=== PATIENT | female | born 1975 | race Caucasian/White ===

== ENCOUNTER 2018-07-12 09:47 | Outpatient (REF) | payer OTHER, SELFPAY ==
[2018-07-12 12:51] LABS: ALT 18 U/L (12-78); AST 13 U/L (15-37); Albumin 3.7 g/dL (3.4-5.0); Alkaline Phosphatase 77 U/L (46-116); Anion Gap 9.7 mmol/L (3-11); BUN 14 mg/dL (7-18); Bilirubin, Total 0.4 mg/dL (0.2-1.0); CO2 25.3 mmol/L (21.0-32.0); CREATININE 0.68 mg/dL (0.55-1.02); Chloride 103 mmol/L (98-107); Glucose 92 mg/dL (70-100); Potassium 3.7 mmol/L (3.5-5.1); Sodium 138 mmol/L (136-145); Total Protein 7.4 g/dL (6.4-8.2)
[2018-07-12 13:07] LABS: Cholesterol 230 mg/dL (50-200); HDL Cholesterol 50 mg/dL (40-60); LDL CHOLESTEROL 158 mg/dL (<100); Triglyceride 118 mg/dL (30-150)
== END 2018-07-12 10:07 ==
LOC: NCHCN 09:47
PROVIDERS: PCP Internal Medicine; Visit Provider Nurse Practitioner
DX: Z00.00 Encounter for general adult medical examination without abnormal findings (principal); Z13.220 Encounter for screening for lipoid disorders; Z13.228 Encounter for screening for other metabolic disorders
CPT/HCPCS: 80053; 80061; 83721

== ENCOUNTER 2018-12-16 00:34 | Outpatient (CLI) | payer OTHER, SELFPAY ==
--- NOTE | 2018-12-16 07:42 | DI.MAMMO_ITS ---
SYMPTOM/DIAGNOSIS: SCREENING, Z12.31 MAMMOGRAMS: Mammograms were interpreted according to the usual protocol including computer analysis with CAD system, tomosynthesis and C view imaging. The breasts are heterogeneously dense. No dominant mass or clumped microcalcification is identified in either breast. The current examination is compared with previous examinations including 10/2017 and there has been no gross interval change in appearance in comparison with the previous studies. CONCLUSION: No specific evidence of malignancy at this time. Routine screening examinations are suggested at yearly intervals in this age group according to the ACS/ACR guidelines. Category 1. Breast density, category C. MQSA ASSESSMENT OF FINDINGS: Negative. Category 1. Patient will receive a letter notifying them of these results. Bi-RADS category C. The breasts are heterogeneously dense, which may obscure small masses.
== END 2018-12-16 00:54 ==
PROVIDERS: PCP Internal Medicine; Visit Provider Nurse Practitioner Women's Health
DX: Z12.31 Encounter for screening mammogram for malignant neoplasm of breast (principal)
CPT/HCPCS: 77063; 77067

== ENCOUNTER 2019-06-09 09:03 | Outpatient (REF) | payer OTHER, SELFPAY ==
[2019-06-09 14:37] LABS: Anion Gap 9.3 mmol/L (3-11); BUN 7 mg/dL (7-18); CO2 26.7 mmol/L (21.0-32.0); CREATININE 0.63 mg/dL (0.55-1.02); Calcium 8.7 mg/dL (8.5-10.1); Chloride 107 mmol/L (98-107); Glucose 83 mg/dL (70-100); Potassium 3.9 mmol/L (3.5-5.1); Sodium 143 mmol/L (136-145)
== END 2019-06-09 09:23 ==
LOC: NCHCN 09:03
PROVIDERS: PCP Internal Medicine; Visit Provider Internal Medicine
DX: Z00.00 Encounter for general adult medical examination without abnormal findings (principal); I10 Essential (primary) hypertension; E66.9 Obesity, unspecified
CPT/HCPCS: 80048

== ENCOUNTER 2019-08-17 18:35 | Emergency (ER) | payer OTHER, SELFPAY ==
[2019-08-17 18:41] VITALS: BP 167/86; PULSE 98; RESP 20; TEMP 37.1; O2SAT 98
[2019-08-17 19:26] LABS: Bilirubin Negative (Negative); Blood Small (Negative); Clarity Sl Cloudy (Clear); Glucose Negative (Negative); Ketones Negative (Negative); Leukocyte Esterase Small (Negative); Nitrite Negative (Negative); Specific Gravity >= 1.030 (1.005-1.025); Urobilinogen 0.2 EU/dL (Up TO 0.2); pH 5.5 (5-8)
[2019-08-17 19:43] LABS: Bacteria Negative HPF (Negative); C & S Indicated? Yes; Casts Negative LPF (Negative); Crystals Negative HPF (Negative); Epithelial Cells Few HPF (Negative); Mucus Negative (Negative); Other Cells Few Renal (Negative); RBC Negative HPF (0-2); WBC >50 HPF (0-5)
--- NOTE | 2019-08-17 19:48 | W.ED.GENAD ---
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 Call tomorrow to schedule timely follow-up. Please contact your primary care physician to arrange follow-up. Return to the ER for any worsening or new concerning symptoms. Referrals: Sigifredo Samayoa MD [Primary Care Provider] - Medical Decision Making 44-year-old female with no prior history of urinary tract infection, here with sense of incomplete emptying, increased urinary frequency, and dysuria over the past few days and loss of bladder control with incontinence today. Urinalysis was reviewed and consistent with UTI. Plan to treat with Keflex. 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 She was also encouraged to return to the ER immediately should she have any worsening or new concerning symptoms or inability to follow-up as discussed. HPI General Mode of arrival: ambulatory. Date/Time Provider Initiated Documentation: 08/17/19 18:52. Limitations to Documentation: no limitations. Information obtained by: patient. HPI Narrative: 44-year-old female here with chief complaint of abnormal urinary symptoms. Patient notes that for the past 2 to 3 days she has had increased urinary frequency, sense of incomplete emptying, mild discomfort post urination, and today while she was at work and attempting to hold in her urination had loss of bladder control. Symptoms are moderate. She denies associated nausea or fever. She has chronic unchanged low back pain times years. No associated flank pain. No abdominal pain. Patient denies abnormal vaginal discharge. She is on oral control. She is sexually active with one partner. No history of STDs. No abnormal vaginal bleeding but does note that she has had some intermittent pelvic discomfort described as cramping over the past 1 month that resolved last week. 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: 3 Review of Systems All systems reviewed & are unremarkable except as noted in HPI and below Constitutional Constitutional: Denies fever(s) Gastrointestinal Gastrointestinal: Denies abdominal pain Genitourinary Genitourinary: Reports as per HPI and Denies hematuria [facility] Medical History Depression (Chronic) Hypertension (Chronic) Social History Smoking/Tobacco Use Status: Never Alcohol Intake: never Substance use type: does not use Do you feel safe at home: Yes Do you feel safe in your relationship?: Yes Exam Const General: cooperative and no acute distress HENMT Mouth: moist mucous membranes Eyes Conjunctivae: normal conjunctivae Sclera: normal sclerae Resp Auscultation: clear to auscultation bilaterally, no rales, no rhonchi and no wheezes Cardio Jugular venous pressure: no JVD Rate: regular rate and not tachycardic Rhythm: regular rhythm GI Palpation: soft, not firm, no guarding, no masses, not rigid and nontender Skin General skin exam: no rashes or lesions noted Neuro General: alert, awake and tone normal Extrem General: no edema Psych Appearance: grossly normal Mental Status: mental status grossly normal Course Vital Signs Vital signs: Vital Signs Temperature 37.1 C 08/17/19 18:41 Pulse 98 H 08/17/19 18:41 Respiratory Rate 08/17/19 18:41 Blood Pressure 167/86 H 08/17/19 18:41 Pulse Oximetry 98 08/17/19 18:41 Temperature 37.1 C 08/17/19 18:41 Temperature Source Temporal Artery Scan 08/17/19 18:41 Pulse 98 H 08/17/19 18:41 Respiratory Rate 08/17/19 18:41 Respiratory Effort Non-Labored 08/17/19 18:48 Blood Pressure 167/86 H 08/17/19 18:41 Blood Pressure Position Sitting 08/17/19 18:41 Pulse Oximetry 98 08/17/19 18:41 Oxygen Delivery Method Room Air 08/17/19 18:41 Oxygen Flow Rate 0 08/17/19 18:41 Pain Level 2 08/17/19 18:48 Lab/Test Results Lab/Test Results: 08/17/19 19:20 Urine - Reflex from Ua Urine Culture - Pending Laboratory Tests Range/Units 08/17/19 19:20 Urine Color (Yellow) Yellow Urine Clarity (Clear) Sl cloudy Urine pH (5-8) 5.5 Ur Specific [place] (1.005-1.025) >= 1.030 H Urine Protein (Negative) mg/dL 100 H Urine Ketones (Negative) mg/dL Negative Urine Blood (Negative) Small H Urine Nitrite (Negative) Negative Urine Bilirubin (Negative) Negative Urine Urobilinogen (Up TO 0.2) EU/dL 0.2 Ur Leukocyte Esterase (Negative) Small H Urine RBC (0-2) HPF Negative Urine WBC (0-5) HPF >50 H Ur Epithelial Cells (Negative) HPF Few Urine Crystals (Negative) HPF Negative Urine Bacteria (Negative) HPF Negative Urine Casts (Negative) LPF Negative Urine Mucus (Negative) Negative Urine Other (Negative) Few renal Ur Culture Indicated? Yes Urine Glucose (Negative) mg/dL Negative POC- Test(urine) Negative
[2019-08-17] MEDS: Cephalexin 500 MG CAP PO (19:56)
[2019-08-17 19:57] VITALS: BP 157/73; PULSE 91; RESP 18; TEMP 37.5; O2SAT 98
== END 2019-08-17 22:05 | disposition home or self-care (01) ==
PROVIDERS: Emergency Provider Student in an Organized Health Care Education/Training Program; PCP Internal Medicine
DX: N39.0 Urinary tract infection, site not specified (principal); B96.89 Other specified bacterial agents as the cause of diseases classified elsewhere; I10 Essential (primary) hypertension
CPT/HCPCS: 81025; 99283; 81003; 81015; 87086

== ENCOUNTER 2019-11-10 10:10 | Outpatient (REF) | payer OTHER, SELFPAY ==
--- NOTE | 2019-11-10 09:30 | SKI_PTH ---
PATIENT: Paulette Purvis LOC: [facility] U#:[id number] AGE/SX: 44/F ROOM: RE11/10/[address]: MARIANN Trejo : 1975 BED: DIS: 11/10/2019 SPEC #: [id number] RECD: 11/10/19 12:27 STATUS: CARMEN REUmesh #: [id number] GANESH: 11/10/19 09:[address]: Celia Quiroga DEPT: Surgical Specimen RECD BY: Mavis Dillard ENTERED: 11/10/19 12:28 SP TYPE: SKI OTHR DR: Sigifredo Samayoa Tissues: 1 - SKIN BIOPSY(SHAVE/PUNCH) Procedures: SKIN LEVEL 4 Comments: [id number]
== END 2019-11-10 10:30 ==
LOC: LBN 10:10
PROVIDERS: PCP Internal Medicine; Visit Provider Physical Therapy Assistant
DX: D23.62 Other benign neoplasm of skin of left upper limb, including shoulder (principal)
CPT/HCPCS: 88305

== ENCOUNTER 2021-07-15 09:21 | Outpatient (REF) | payer OTHER, SELFPAY ==
[2021-07-15 16:53] LABS: HCT 43.7 % (36.0-46.0); HGB 14.5 g/dL (11.2-15.7); MCHC 33.2 % (32.0-36.0); MCV 93.4 fL (80-95); MPV 10.7 fL (8.0-11.0); Platelet Count 365 10^3/uL (130-400); RBC 4.68 10^6/uL (3.93-5.22); RDW 11.9 % (11.7-14.6); RDW-SD 41.1 fL; WBC 6.82 10^3/uL (4.4-10.8)
[2021-07-15 17:39] LABS: ALT 19 U/L (14-59); AST 13 U/L (15-37); Alkaline Phosphatase 100 U/L (46-116); Anion Gap 11.7 mmol/L (3-11); BUN 18 mg/dL (7-18); Bilirubin, Total 0.4 mg/dL (0.2-1.0); CO2 26.3 mmol/L (21.0-32.0); CREATININE 0.7 mg/dL (0.55-1.02); Calcium 9.2 mg/dL (8.5-10.1); Calculated LDL 201 mg/dL (<100); Chloride 99 mmol/L (98-107); Cholesterol 301 mg/dL (<200); Glucose 97 mg/dL (74-106); HDL Cholesterol 56 mg/dL (40-60); Potassium 3.8 mmol/L (3.5-5.1); Sodium 137 mmol/L (136-145); TSH (W/Ref FT4) 1.62 uIU/mL (0.36-3.74); Total Protein 7.9 g/dL (6.4-8.2); Triglyceride 224 mg/dL (<150)
[2021-07-16 11:13] LABS: Hepatitis C Ab w Rflx HCV PCR Negative (Negative)
== END 2021-07-15 09:22 | disposition home or self-care (01) ==
LOC: NCHCN 09:21
PROVIDERS: PCP Internal Medicine; Visit Provider Family Medicine
DX: I10 Essential (primary) hypertension (principal); E66.9 Obesity, unspecified; Z00.00 Encounter for general adult medical examination without abnormal findings; Z11.59 Encounter for screening for other viral diseases
CPT/HCPCS: 80053; 80061; 85027; 86803; 84443

== ENCOUNTER 2021-09-02 15:04 | Outpatient (REF) | payer OTHER, SELFPAY ==
[2021-09-02 20:41] LABS: ALT 18 U/L (14-59); AST 12 U/L (15-37); Albumin 3.9 g/dL (3.4-5.0); Alkaline Phosphatase 96 U/L (46-116); Bilirubin, Direct 0.1 mg/dL (0.0-0.2); Bilirubin, Total 0.3 mg/dL (0.2-1.0); Total Protein 7.6 g/dL (6.4-8.2)
== END 2021-09-02 15:05 | disposition home or self-care (01) ==
LOC: NCHCN 15:04
PROVIDERS: PCP Internal Medicine; Visit Provider Family Medicine
DX: I10 Essential (primary) hypertension (principal)
CPT/HCPCS: 80076

== ENCOUNTER 2021-11-12 01:46 | Outpatient (CLI) | payer OTHER, SELFPAY ==
--- NOTE | 2021-11-12 | DI.MAMMO_ITS ---
Exam(s) MAMMO SCREENING EXAM: MAMMO SCREENING CLINICAL HISTORY: SCREENING FOR BREAST CANCER Z12.39 TECHNIQUE: Bilateral full field digital CC and MLO mammographic images were obtained with 3D tomosyn thesis and utilizing computer aided detection (CAD). COMPARISON: Available for comparison. FINDINGS: Masses/Architectural Distortion: None seen. Microcalcifications: No suspicious pleomorphic-type are seen. Skin Thickening/Nipple Retraction: None. IMPRESSION: 1. No significant interval change with no specific features of malignancy noted. 2. Unless there is more urgent need, screening mammography is recommended, as per [employer] guidelines. BI-RADS Category 1 - Negative Breast Density - Category C - Heterogeneously dense Breast density category C or D implies that the patient has dense breast tissue. Dense breast tissue is very common and is not abnormal but dense breast tissue can make it harder to find cancer on a ma mmogram. Also, dense breast tissue may increase their breast cancer risk. This information about the result of the mammogram report was provided to the patient to raise their awareness. Use this report when you speak with the patient about their risks for breast cancer, which includes their family hist ory. At that time, you may recommend for more screening tests (Ultrasound or MRI) as they might be us eful based on their risk. A negative radiographic report should not delay biopsy if a dominant or clinically suspicious mass is present. Up to ten percent of cancers are not identified on mammography. A negative report may reinforce clinical impression. Adenosis and dense breasts may obscure an underlying neoplasm. False positive reports average 6 to 10%. Patient will receive a letter notifying them of these results.
== END 2021-11-12 02:06 ==
PROVIDERS: PCP Internal Medicine; Visit Provider Family Medicine
DX: Z12.31 Encounter for screening mammogram for malignant neoplasm of breast (principal)
CPT/HCPCS: 77063; 77067

== ENCOUNTER 2022-09-11 10:30 | Outpatient (REF) | payer OTHER, SELFPAY ==
[2022-09-11 14:59] LABS: BUN 10 mg/dL (7-18); CREATININE 0.7 mg/dL (0.55-1.02); Calcium 9.6 mg/dL (8.5-10.1); Chloride 101 mmol/L (98-107); Estimated GFR 105.95 (mL/min/1.73m2); Glucose 97 mg/dL (74-106); Potassium 4.3 mmol/L (3.5-5.1); Sodium 136 mmol/L (136-145)
[2022-09-11 15:41] LABS: Calculated LDL 103 mg/dL (<100); Cholesterol 181 mg/dL (<200); HDL Cholesterol 71 mg/dL (40-60); Triglyceride 38 mg/dL (<150)
== END 2022-09-11 10:31 | disposition home or self-care (01) ==
LOC: NCHCN 10:30
PROVIDERS: PCP Internal Medicine; Visit Provider Family Medicine
DX: E66.8 Other obesity (principal); I10 Essential (primary) hypertension
CPT/HCPCS: 80048; 80061

== ENCOUNTER 2022-11-20 02:24 | Outpatient (CLI) | payer OTHER, SELFPAY ==
--- NOTE | 2022-11-20 | DI.MAMMO_ITS ---
Exam(s) MAMMO SCREENING EXAM: MAMMO SCREENING CLINICAL HISTORY: SCREENING, Z12.31. TECHNIQUE: Bilateral full field digital CC and MLO mammographic images were obtained with 3D tomosyn thesis and utilizing computer aided detection (CAD). COMPARISON: Prior mammograms were reviewed. FINDINGS: There has been no significant change in the appearance and distribution of the fibroglandular tissue. There are no new spiculated masses nor malignant appearing microcalcification groups. There is no significant architectural distortion nor skin thickening-retraction. IMPRESSION: No radiographic evidence of malignancy. BI-RADS Category 1 - Negative Breast Density - Category C - Heterogeneously dense Breast density Category C or D implies that the patient has dense breast tissue. Dense breast tissue can make it harder to find cancer on a mammogram. Dense breast tissue is also associated with an incr eased risk of breast cancer. This information about the result of the mammogram report was provided to the patient to raise their awareness. Use this report when you speak with the patient about their risks for breast cancer, which includes their family history. At that time, you may recommend additional screening tests (Ultrasoun d or MRI) as these tests may add significant information. A negative radiographic report should not delay biopsy if a dominant or clinically suspicious mass is present. Up to ten percent of cancers are not identified on mammography. A negative report may reinforce clinical impression. Adenosis and dense breasts may obscure an underlying neoplasm. False positive reports average 6 to 10%. Patient will receive a letter notifying them of these results.
== END 2022-11-20 02:44 ==
LOC: DI 02:25
PROVIDERS: PCP Internal Medicine; Visit Provider Family Medicine
DX: Z12.31 Encounter for screening mammogram for malignant neoplasm of breast (principal)
CPT/HCPCS: 77063; 77067

== ENCOUNTER 2024-09-22 01:51 | Outpatient (CLI) | payer OTHER, SELFPAY ==
[2024-09-22 08:48] LABS: ALT 15 U/L (14-59); AST 12 U/L (15-37); Albumin 3.8 g/dL (3.4-5.0); Alkaline Phosphatase 110 U/L (46-116); Anion Gap 7.4 mmol/L (3-11); BUN 14 mg/dL (7-18); CO2 29.6 mmol/L (21.0-32.0); CREATININE 0.9 mg/dL (0.55-1.02); Calcium 9.5 mg/dL (8.5-10.1); Calculated LDL 85 mg/dL (<100); Chloride 101 mmol/L (98-107); Cholesterol 176 mg/dL (<200); Glucose 109 mg/dL (74-106); HDL Cholesterol 73 mg/dL (40-60); Potassium 4.3 mmol/L (3.5-5.1); Sodium 138 mmol/L (136-145); Total Protein 7.8 g/dL (6.4-8.2); Triglyceride 92 mg/dL (<150)
== END 2024-09-22 01:52 | disposition home or self-care (01) ==
PROVIDERS: PCP Internal Medicine; Visit Provider Family Medicine
DX: Z00.00 Encounter for general adult medical examination without abnormal findings (principal)
CPT/HCPCS: 36415; 80053; 80061

== ENCOUNTER 2024-11-18 00:26 | Outpatient (CLI) | payer OTHER, SELFPAY ==
--- NOTE | 2024-11-18 | DI.MAMMO_ITS ---
Exam(s) MAMMO SCREENING EXAM: MAMMO SCREENING CLINICAL HISTORY: Screening, Z12.31. TECHNIQUE: Bilateral full field digital CC and MLO mammographic images were obtained with 3D tomosyn thesis and utilizing computer aided detection (CAD). COMPARISON: Prior mammograms were reviewed. FINDINGS: There has been no significant change in the appearance and distribution of the fibroglandular tissue. There are no CAD designations. There are no new spiculated masses nor malignant appearing microcalcification groups. There is no significant architectural distortion nor skin thickening-retraction. IMPRESSION: No radiographic evidence of malignancy. BI-RADS Category 1 - Negative Breast Density - Category C - Heterogeneously dense Breast density Category C or D implies that the patient has dense breast tissue. Dense breast tissue can make it harder to find cancer on a mammogram. Dense breast tissue is also associated with an incr eased risk of breast cancer. This information about the result of the mammogram report was provided to the patient to raise their awareness. Use this report when you speak with the patient about their risks for breast cancer, which includes their family history. At that time, you may recommend additional screening tests (Ultrasoun d or MRI) as these tests may add significant information. A negative radiographic report should not delay biopsy if a dominant or clinically suspicious mass is present. Up to ten percent of cancers are not identified on mammography. A negative report may reinforce clinical impression. Adenosis and dense breasts may obscure an underlying neoplasm. False positive reports average 6 to 10%. Patient will receive a letter notifying them of these results.
== END 2024-11-18 00:46 ==
PROVIDERS: PCP Family Medicine; Visit Provider Family Medicine
DX: Z12.31 Encounter for screening mammogram for malignant neoplasm of breast (principal); R92.333 Mammographic heterogeneous density, bilateral breasts
CPT/HCPCS: 77063; 77067

== ENCOUNTER 2025-01-02 10:38 | Day surgery (SDC) | payer OTHER, SELFPAY ==
--- NOTE | 2025-01-01 14:34 | W.PM.DSUDISC ---
Date of service: 01/02/25 Discharge Plan Disposition Patient Disposition: Home Condition: Good Discharge Details Reason For Visit: screening colonoscopy Attending Provider: Benji Brito Primary Care Provider: Ti Fox Home Meds and New Rx's Prescriptions: Continued hydrochlorothiazide 25 mg tablet 25 mg PO DAILY lisinopril 10 mg tablet 10 mg PO DAILY atorvastatin 20 mg tablet 20 mg PO QHS Discontinued polyethylene glycol 3350 17 gram/dose powder 238 g PO ONCE Qty: 238 0RF Rx Instructions: take per colonoscopy instructions bisacodyl [Dulcolax (bisacodyl)] 5 mg tablet,delayed release (DR/EC) 5 mg PO ONCE Qty: 4 0RF Rx Instructions: take per colonoscopy instructions Discharge Instructions Instructions: Colon polyps, Diverticulosis Additional Instructions: Paulette, it was very nice seeing you today and hope you feel well after the procedure. Things went very smoothly. Your prep was excellent and I could see everything fine. I did find, and removed 4 polyps today. All of these were small, none of them have any worrisome features to the naked eye. All of these polyps will be sent off for testing since polyps do come in different varieties, and we use the information from the report to help guide the timing of future colonoscopies. Incidentally, you also have a little bit of diverticulosis. Diverticula are little weak spots in the muscular layer of the colon wall. This causes the inside lining, or mucosa, to pooch or pocket outwards. These pockets are called diverticula, and the condition of having them is known as diverticulosis. Some patients experience sharp pain in the left lower quadrant or across the middle portion of the abdomen during flareups that we referred to as diverticulitis. Generally, I recommend that patients with diverticular symptoms to maintain a diet that is rich in fiber, stay well-hydrated, and avoid symptoms of constipation. I attached the basic information here about colon rectal polyps, as well as diverticulosis. If you have any questions at all, please do not hesitate to ask, otherwise the office will be in touch once we have the polyp report. 1. If tolerated, consume a soft, low fiber diet for 1-2 days. 2[address] Do not drive, drink alcohol, operate machinery, make critical decisions, or do activities that require coordination or balance for 24 hours. 3. Because air was put into your colon during the procedure, expelling air from your rectum (passing gas or farting) is normal. 4. You may not have a bowel movement for 1-3 days because of the colonoscopy prep. This is normal. 5. Go directly to the emergency room if you notice any of the following: Develop chills (warm to touch), or if you have a thermometer and your temperature is above 101 Difficulty breathing or difficultly swallowing Persistent vomiting Severe abdominal pain, other than gas cramps Severe chest pain Black, tarry stools Any bleeding ? exceeding one tablespoon 6. Call your physician if the site where your intravenous was started becomes red, swollen, painful, and warm to touch. 7. Your physician has reviewed your pre-procedure medications. Please continue to take those medications as previously ordered. You will be given specific information/education regarding any changes to your medications before leaving. Activity:: Activity as Tolerated Diet:: As Tolerated Discharge Orders Discharge Orders: Discharge Order (Routine); Ordered 01/01/25 Ordered By: Benji Brito DS: Diagnosis Discharge Diagnosis (1) Encounter for screening colonoscopy: Status: Acute Asessment and Plan: Will follow-up on polypectomy results
--- NOTE | 2025-01-01 14:35 | COLE_ITS ---
Date of service: 01/02/25 Time of Service: 13:03 Colonoscopy Report Date of procedure: 01/02/25 Pre-op diagnosis general: screening colonocsopy Post-op diagnosis procedure note: other (Colon polyps, diverticulosis) Procedure: colonoscopy with polypectomy Surgeon: Benji Brito Anesthesia Type: General:No Airway Estimated blood loss (mL): 5 Pathology: other (0.25 cm rectal polyps x 2, 0.25 cm flat polyp at 50 cm, 0.25 cm flat polyp at 90 cm) Complications: None Disposition: same day Indications: Paulette is a 49 year old woman who needs a screening colonoscopy Prep: Miralax/Dulcolax Procedure Start Time: 12:30 Procedure End Time: 12:54 Retraction Time: 17 Findings: Sigmoid diverticulosis, 0.25 cm rectal polyps x 2, 0.25 cm flat polyp at 50 cm, 0.25 cm flat polyp at 90 cm Procedure Description: After the induction of anesthesia, and with the patient in left lateral decubitus position, I began by performing an external anorectal exam.? Perineum and skin were normal, as was the anal verge.? There was no evidence of external hemorrhoids.? Next, I performed a digital rectal exam.? I did not appreciate any abnormal findings.? Next, I advanced a colonoscope into the rectal vault.? I performed retroflexion.? This appeared normal.? Using insufflation, I then advanced the colonoscope beyond the rectal folds and into the sigmoid colon before advancing towards the cecum.? The scope was noted to be in the cecum by identification of the ileocecal valve and appendiceal orifice.? I then began withdrawing the colonoscope using repeated irrigation as necessary for full evaluation of the colonic mucosa. ?Around 90 cm from the anal verge was a 0.25 cm flat polyp. This was removed with cold forceps with minimal bleeding. Another 0.25 cm polyp was found at 50 cm from the anal verge. This was also flat, and also removed with cold forceps without issues. Once the scope was withdrawn to the level of the rectum, great care was taken to examine portions of the rectal folds.? There were several diminutive hyperplastic appearing polyps in the rectum, but 2 of these had adenomatous features. These were removed with cold forceps. These 2 polyps were each less than 0.25 cm, and both polyps were sent as a single specimen. Finally, the scope was withdrawn and the patient was brought to the same-day surgery recovery unit as the anesthetic wore off. ?The findings and instructions were shared with the patient prior to d ischarge. [place] Bowel Prep [place] Bowel Prep Right Colon: 3 Left Colon: 3 Transverse Colon: 3 Total Score: 9
[2025-01-02 11:03] VITALS: BP 139/102; PULSE 108; RESP 20; TEMP 36.4; O2SAT 98
[2025-01-02] MEDS: Lactated Ringers 1,000 ML 80 ML IV (11:25)
[2025-01-02 12:02] VITALS: BMI 45.7
--- NOTE | 2025-01-02 12:15 | W.ANESPRE ---
General Info Date of Service Date Performed: 01/02/25 Height: 5 ft 5 in Weight: 124.6 kg Body Mass Index (BMI): 45.7 Surgical Procedure: Operation Date: 01/02/25 12:05 Proposed Procedure Side Surgeon p Domingo Brito MD Meds Allergies and Home Medications Allergies Allergy/AdvReac Type Severity Reaction Status Date / Time No Known Allergies Allergy Verified 01/02/25 11:04 Home Medication ?Medication ?Instructions ?Recorded lisinopril 10 mg tablet 10 mg PO DAILY 09/15/19 hydrochlorothiazide 25 mg tablet 25 mg PO DAILY 11/10/19 atorvastatin 20 mg tablet 20 mg PO QHS 12/08/24 Current Visit Medications: Current Medications Generic Name Dose Route Start Last Admin Trade Name Freq PRN Reason Stop Dose Admin Ringer's Solution 1,000 mls @ 80 mls/hr 01/02/25 06:00 01/02/25 11:25 IV 01/02/25 23:59 80 mls/hr INFUSION SYLVIE Administration IV Miscellaneous Supplies 1 each 01/02/25 06:00 Iv Access IV 01/02/25 23:59 DIRECTED SYLVIE Ondansetron HCl 4 mg 01/01/25 14:36 Ondansetron 4 Mg/2 Ml Vial IVP 01/31/25 14:35 Q4H PRN PRN Nausea / Vomiting Sodium Chloride 0 ml 01/02/25 06:00 Normal Saline Flush 10 Ml Syr IV 01/02/25 23:59 PRN PRN Sodium Chloride 0 ml 01/02/25 06:00 Normal Saline 10 Ml Vial IJ 01/02/25 23:59 DIRECTED PRN Sterile Water 0 ml 01/02/25 06:00 Water,Injection,Sterile 10 Ml Vial IJ 01/02/25 23:59 DIRECTED PRN PFSH Active Problems Active Problems: Problem Status Onset Code Encounter for screening colonoscopy Acute Z12.11 Medical History Medical History High cholesterol Skin lesion left shoulder Obesity Vulvar cysts History of palpitations Depression Hypertension Tobacco Smoking/Tobacco Use Status: Never Passive smoking exposure: No Alcohol Alcohol Intake: never Substance Use Substance use: Never Substance use type: does not use Vital Signs and Lab Results Vital Signs Most Recent Vital Signs in EMR: Most Recent Vital Signs Temp Pulse Resp BP Pulse Ox 36.4 C L 108 H 20 139/102 H 98 01/02/25 11:03 01/02/25 11:03 01/02/25 11:03 01/02/25 11:03 01/02/25 11:03 Lab Results Blood Type / Crossmatch: No Data to Display Complete Blood Count: No Data to Display Complete Metabolic Panel: No Data to Display Liver Function Panel: No Data to Display Coagulation Panel: No Data to Display Cardiac Panel: No Data to Display Arterial Blood Gas: No Data to Display Venous Blood Gas: No Data to Display Pancreas Panel: No Data to Display Thyroid Panel: No Data to Display Infectious Disease: No Data to Display Blood Cultures: No Data to Display Toxicology Panel: No Data to Display Panel: No Data to Display Anesthesia Assessment and Plan Anesthesia History Personal History: No History of Anesthesia Complications Family History: No Family History of Anesthesia Complications Exercise Tolerance Exercise Tolerance: Metabolic Equivalents>4 Pertinent Negatives Pertinent Negatives: No Symptoms of GERD, No Major Cardiovascular Symptoms or Complaints, No Major Pulmonary Symptoms or Complaints and No History of CVA/TIA Cardiac & Pulmonary Exam Cardiac Exam: Normal S1/S2 Heart Sounds Pulmonary Exam: Clear Bilateral Breath Sounds and No cough or Cold Implantable Cardiac Device Does patient have a Pacemaker or an ICD?: No Airway Exam Known Difficult Airway: No Mallampati Class: 2 Mouth Opening: Normal (> 3cm) Thyromental Distance: Greater than 3 cm Neck Range of Motion: Full ROM Neck Circumference: Thick Teeth Condition: Normal Dentition ASA Classification ASA Score: ASA 3 Emergency Case?: No NPO Status NPO Status: NPO Clears >2 hours, Solids >8 hours Status Status: Negative HCG Anesthesia Plan Resuscitation Status: Full Code Anesthesia Technique: MAC Anesthesia Airway Planned: Natural Airway Monitors Used: Standard Monitors
--- NOTE | 2025-01-02 12:44 | BOWEL_PTH ---
PATIENT: Paulette Purvis LOC: [facility] U#:[id number] AGE/SX: 49/F ROOM: RE01/02/[address]: Benji Brito MD : 1975 BED: DIS: 01/02/2025 SPEC #: [id number] RECD: 01/02/25 13:22 STATUS: CARMEN RE #: [id number] GANESH: 01/02/25 12:[address]: Benji Brito DEPT: Surgical Specimen RECD BY: Mavis Dillard ENTERED: 01/02/25 13:23 SP TYPE: Bowel OTHR DR: Ti Fox Tissues: 1 - BIOPSY BOWEL 2 - BIOPSY BOWEL 3 - BIOPSY BOWEL Procedures: GROSS AND MICRO LEVEL 4 Comments: [id number]
[2025-01-02 12:59] VITALS: BP 99/55; PULSE 90; RESP 18; TEMP 36.6; O2SAT 98
[2025-01-02 13:22] VITALS: BP 113/79; PULSE 86; RESP 16; TEMP 36.2; O2SAT 100
--- NOTE | 2025-01-02 13:29 | W.ANESPOSTOP ---
Postoperative Evaluation Date, Time and Location Date Performed: 01/02/25 Time Performed: 13:29 Patient Location: Day Surgery Unit Vital Signs Most Recent Imported Vital Signs: Most Recent Vital Signs Temp Pulse Resp BP Pulse Ox 36.2 C L 86 16 113/79 100 01/02/25 13:22 01/02/25 13:22 01/02/25 13:22 01/02/25 13:22 01/02/25 13:22 Pain Score Most Recent Pain Score: Most Recent Pain Score Pain Level 0 01/02/25 13:22 Assessment Mental Status: Awake (Alert & Oriented to Patient Baseline) Airway and Respiratory Function: Patent airway with normal (patient baseline) respiratory exam Cardiovascular Function: Hemodynamically Stable Hydration Status: Adequately Hydrated Nausea & Vomiting: No Nausea or Vomiting Pain: Pain is tolerable per patient Peripheral Nerve Block: Patient did not receive a nerve block Teaching Patient Teaching: Discussed Safe Use of Pain Medication Given Recent Anesthesia and Discussed Safe Use of Pain Medication Given Likely or Known ISATU
== END 2025-01-02 13:40 | disposition home or self-care (01) ==
LOC: SUR 10:39
PROVIDERS: PCP Family Medicine; Visit Provider Surgery
PROC: 0DJD8ZZ Inspection of Lower Intestinal Tract, Via Natural or Artificial Opening Endoscopic (ICD-10-PCS; CPT 45378; principal; 2025-01-02 12:00)
DX: Z12.11 Encounter for screening for malignant neoplasm of colon (principal); K57.30 Diverticulosis of large intestine without perforation or abscess without bleeding; D12.3 Benign neoplasm of transverse colon; D12.5 Benign neoplasm of sigmoid colon
CPT/HCPCS: 45380; 81025; 88305; J2003; J2371; J2405; J2704